=== PATIENT | male | born 1965 | race Caucasian/White ===

== ENCOUNTER 2018-09-18 09:30 | Inpatient (IN) | payer SELFPAY ==
[2018-09-18] MEDS ORDERED: LORazepam 2 MG/ML INJ IVP ONE (09:35)
--- NOTE | 2018-09-18 09:35 | EDPHY ---
H & P Time Seen by Provider: 09/18/18 09:31 Constitutional: Initial Vital Signs Temperature (C) 36.5 C 09/18/18 09:34 Heart Rate 116 H 09/18/18 09:34 Respiratory Rate 20 09/18/18 09:34 Blood Pressure 140/113 H 18 09:34 O2 Sat (%) 94 09/18/18 09:34 O2 Delivery Mode Room Air Allergies/Adverse Reactions: shrimp Allergy (Verified 09/18/18 09:34) Home Medications: Medication Instructions Recorded Ibuprofen [Motrin (*)] 200 mg PO DAILY PRN 09/18/18 Medical Decision Making ED Course/Re-evaluation: CHIEF COMPLAINT: Seizure HISTORY OF PRESENT ILLNESS: The patient is a 61 y/o male with a history of prior alcohol-withdrawal seizures arriving via EMS from the [facility] with altered mentation after a witnessed seizure. Per bystanders to EMS, he did not fall and was assisted to the ground. Bystanders denied apneic periods or head trauma. In addition to being postictal, EMS noted a tongue bite and urinary incontinence. Prehospital BGL was 159. The patient is able to answer some questions, but at times is nonsensical telling me how his sister was feeding alcohol to rabbits. He says his last alcohol intake was last night and it sounds like his sister may be trying to help him taper off it, though this is unclear due to altered mentation. REVIEW OF SYSTEMS: A comprehensive 10 system review of systems is otherwise negative aside from elements mentioned in the history of present illness and medical decision making. PHYSICAL EXAM: HR, BP, O2 Sat, RR. Temp noted General Appearance: Alert, well hydrated, appropriate, and non-toxic appearing. Head: Atraumatic without scalp tenderness or obvious injury Eyes: Pupils equal, round, reactive to light and accommodation, EOMI, no trauma , no injection. Ears: Clear bilaterally, no perforation, normal landmarks Nose: Atraumatic, no rhinorrhea, clear. Throat: Mucus membranes moist. Tongue abrasion. Neck: Supple, non-tender, no lymphadenopathy. Respiratory: No retractions, no distress, no wheezes, and no accessory muscle use. Lungs are clear to auscultation bilaterally. Cardiovascular: Tachycardic regular rate and rhythm, no murmurs, rubs, or gallops. Good capillary refill all extremities. Gastrointestinal: Abdomen is soft, non-tender, non-distended, no masses, no rebound, no guarding, no peritoneal signs. Musculoskeletal: Normal active ROM of all extremities, atraumatic. Neurological: Alert, can answer some questions, but tangential and nonsensical at times, and interactive. The patient has non-focal cranial nerves, motor, sensory, and cerebellar exam. Diffusely tremulous. Skin: No rashes, good turgor, no nodules on palpation. PAST MEDICAL HISTORY: Alcoholism with prior withdrawal seizures PAST SURGICAL HISTORY: Noncontributory SOCIAL HISTORY: Lives in [place]. . Prior medical records reviewed including admission for withdrawal seizure . DIAGNOSTICS/PROCEDURES/CRITICAL CARE TIME: Critical care time spent by me, Dr. Johnson, exclusively with this patient was 35 minutes, exclusive of PA time and exclusive of procedures. The organ system at risk was neurologic. Time spent in serial assessments of the patient, consideration of interventions, and review of labs. DIFFERENTIAL DIAGNOSIS: The differential diagnosis for the patient's seizure included but was not limited to electrolyte abnormality, alcohol withdrawal, medication noncompliance, head injury, SENIOR MECHANICAL PROJECT ENGINEER structural abnormality, and break through seizure. MEDICAL DECISION MAKING: This is a 53 y/o male with a history of alcoholism and prior alcohol withdrawal seizures who presents tremulous after a witnessed seizure this morning. He also has nonsensical speech at times indicating his is likely in DTs. 2mg IV Ativan and labs ordered. Plan for admission. Spoke with hospitalist service. Dr. Lam accepts admission. No bed currently available for patient to be admitted to and patient is currently boarding in the ED. - Data Points Laboratory Results: Laboratory Results 09/18/18 09:30 09/18/18 09:30 09/18/18 09/18/18 09/18/18 09:30 09:30 09:30 WBC 9.71 10^3/uL H 10^3/uL (3.80-9.50) RBC 3.85 10^6/uL L 10^6/uL (4.40-6.38) Hgb 13.9 g/dL g/dL (13.7-17.5) Hct 39.9 % L % (40.0-51.0) MCV 103.6 fL H fL (81.5-99.8) MCH 36.1 pg H pg (27.9-34.1) MCHC 34.8 g/dL g/dL (32.4-36.7) RDW 12.5 % % (11.5-15.2) Plt Count 118 10^3/uL L 10^3/uL (150-400) MPV 9.3 fL fL (8.7-11.7) Neut % (Auto) 78.4 % H % (39.3-74.2) Lymph % (Auto) 10.4 % L % (15.0-45.0) [place] % (Auto) 10.4 % % (4.5-13.0) Eos % (Auto) 0.0 % L % (0.6-7.6) Baso % (Auto) 0.4 % % (0.3-1.7) Nucleat RBC Rel Count 0.0 % % (0.0-0.2) Absolute Neuts (auto) 7.61 10^3/uL H 10^3/uL (1.70-6.50) Absolute Lymphs (auto) 1.01 10^3/uL 10^3/uL (1.00-3.00) Absolute Monos (auto) 1.01 10^3/uL H 10^3/uL (0.30-0.80) Absolute Eos (auto) 0.00 10^3/uL L 10^3/uL (0.03-0.40) Absolute Basos (auto) 0.04 10^3/uL 10^3/uL (0.02-0.10) Absolute Nucleated RBC 0.00 10^3/uL 10^3/uL (0-0.01) Immature Gran % 0.4 % % (0.0-1.1) Immature Gran # 0.04 10^3/uL 10^3/uL (0.00-0.10) PT 12.4 SEC SEC (12.0-15.0) INR 0.90 (0.83-1.16) APTT 23.1 SEC SEC (23.0-38.0) Sodium 138 mEq/L mEq/L (135-145) Potassium 3.8 mEq/L mEq/L (3.5-5.2) Chloride 102 mEq/L mEq/L (97-110) Carbon Dioxide 22 mEq/l mEq/l (22-31) Anion Gap 14 mEq/L mEq/L (6-14) BUN 8 mg/dL mg/dL (7-23) Creatinine 0.7 mg/dL mg/dL (0.7-1.3) Estimated GFR > 60 Glucose 151 mg/dL H mg/dL (70-100) Calcium 8.9 mg/dL mg/dL (8.5-10.4) Total Bilirubin 1.0 mg/dL mg/dL (0.1-1.4) Conjugated Bilirubin 0.4 mg/dL mg/dL (0.0-0.5) Unconjugated Bilirubin 0.6 mg/dL mg/dL (0.0-1.1) AST 149 IU/L H IU/L (17-59) ALT 89 IU/L H IU/L (21-72) Alkaline Phosphatase 120 IU/L IU/L (38-126) Total Protein 7.2 g/dL g/dL (6.3-8.2) Albumin 4.6 g/dL g/dL (3.5-5.0) Lipase 285 IU/L IU/L (23-300) Medications Given: Discontinued Medications Phenobarbital Sodium 260 mg/ (Sodium Chloride) 52 mls @ 208 mls/hr IV ONCE ONE Stop: 09/18/18 11:29 Last Admin: 09/18/18 11:26 Dose: 52 mls Phenobarbital Sodium 130 mg/ (Sodium Chloride) 51 mls @ 204 mls/hr IV ONCE ONE Stop: 09/18/18 12:44 Last Admin: 09/18/18 12:50 Dose: 51 mls Lorazepam (Ativan Injection) 2 mg IVP EDNOW ONE Stop: 09/18/18 09:36 Last Admin: 09/18/18 09:41 Dose: 2 mg Departure - Departure Disposition: [facility] Acute Clinical Impression: Delirium tremens Alcohol withdrawal seizure Qualifiers: Complication of substance-induced condition: with delirium Qualified Code(s): F10.231 - Alcohol dependence with withdrawal delirium Condition: Fair Report Scribed for: Андрей Johnson Report Scribed by: Alexsandra Antonio Date of Report: 09/18/18 Time of Report: 09:47
[2018-09-18 09:52] LABS: PLATELET COUNT 118 10^3/uL (150-400)
[2018-09-18 10:02] LABS: INR 0.9 (0.83-1.16); PROTIME(PATIENT) 12.4 SEC (12.0-15.0)
[2018-09-18] MEDS ORDERED: ACETAMINOPHEN 325 MG TAB PO PRN (10:51)
[2018-09-18] MEDS ORDERED: LORazepam 2 MG/ML INJ IVP PRN (10:51)
[2018-09-18] MEDS ORDERED: FLUMAZENIL 0.5 MG/5 ML MDV IVP PRN (10:51)
[2018-09-18] MEDS ORDERED: ONDANSETRON 4 MG/2 ML VIAL IVP PRN (10:51)
[2018-09-18] MEDS ORDERED: ONDANSETRON DISINTEGRATING 4 MG TAB PO PRN (10:51)
[2018-09-18] MEDS ORDERED: LORazepam 1 MG TAB PO PRN (10:51)
--- NOTE | 2018-09-18 11:06 | PDGENHP ---
History and Physical - Chief Complaint seizure - History of Present Illness 53 yo male with h/o alcohol abuse and previous seizure presents to ED via EMS after suffering a seizure at the [facility]. Apparently, his sister was trying to wean him off alcohol so he could present to his court date sober. Upon arrival to the [facility], he suffered a seizure. He bit his tongue and has obvious trauma to his tongue, but denies pain. He is unable to provide an accurate history and hx is obtained from the ED physician and staff. He does note a h/o previous seizures. Seems like he may be under-reporting his etoh history. He is confused. Says he wants to go home. In the ED, he was treated with 2 mg IV Ativan. He is tachycardic and tremulous. He is admitted for further management. History Information - Allergies/Home Medication List Allergies/Adverse Reactions: shrimp Allergy (Verified 09/18/18 09:34) Home Medications: Ibuprofen [Motrin (*)] 200 mg PO DAILY PRN 09/18/18 [Last Taken Unknown] I have personally reviewed and updated: family history, medical history, social history, surgical history - Past Medical History Additional medical history: alcohol abuse. 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 Review of Systems Review of Systems: ROS: 10pt was reviewed & negative except for what was stated in HPI & below Physical Exam Physical Exam: Temp Pulse Resp BP Pulse Ox 36.5 C 116 H 20 140/113 H 94 09/18/18 09:34 09/18/18 09:34 09/18/18 09:34 09/18/18 09:34 09/18/18 09:34 Constitutional: no apparent distress Eyes: PERRL Ears, Nose, Mouth, Throat: moist mucous membranes, other (+left sided tongue laceration) Cardiovascular: tachycardia Respiratory: no respiratory distress Gastrointestinal: normoactive bowel sounds Skin: warm Musculoskeletal: full muscle strength Psychiatric: encephalopathic Lab Data & Imaging Review 09/18/18 09:30 09/18/18 09:30 WBC 9.71 10^3/uL (3.80-9.50) H 09/18/18 09:30 RBC 3.85 10^6/uL (4.40-6.38) L 09/18/18 09:30 Hgb 13.9 g/dL (13.7-17.5) 09/18/18 09:30 Hct 39.9 % (40.0-51.0) L 09/18/18 09:30 MCV 103.6 fL (81.5-99.8) H 09/18/18 09:30 MCH 36.1 pg (27.9-34.1) H 09/18/18 09:30 MCHC 34.8 g/dL (32.4-36.7) 09/18/18 09:30 RDW 12.5 % (11.5-15.2) 09/18/18 09:30 Plt Count 118 10^3/uL (150-400) L 09/18/18 09:30 MPV 9.3 fL (8.7-11.7) 09/18/18 09:30 Neut % (Auto) 78.4 % (39.3-74.2) H 09/18/18 09:30 Lymph % (Auto) 10.4 % (15.0-45.0) L 09/18/18 09:30 [place] % (Auto) 10.4 % (4.5-13.0) 09/18/18 09:30 Eos % (Auto) 0.0 % (0.6-7.6) L 09/18/18 09:30 Baso % (Auto) 0.4 % (0.3-1.7) 09/18/18 09:30 Nucleat RBC Rel Count 0.0 % (0.0-0.2) 09/18/18 09:30 Absolute Neuts (auto) 7.61 10^3/uL (1.70-6.50) H 09/18/18 09:30 Absolute Lymphs (auto) 1.01 10^3/uL (1.00-3.00) 09/18/18 09:30 Absolute Monos (auto) 1.01 10^3/uL (0.30-0.80) H 09/18/18 09:30 Absolute Eos (auto) 0.00 10^3/uL (0.03-0.40) L 09/18/18 09:30 Absolute Basos (auto) 0.04 10^3/uL (0.02-0.10) 09/18/18 09:30 Absolute Nucleated RBC 0.00 10^3/uL (0-0.01) 09/18/18 09:30 Immature Gran % 0.4 % (0.0-1.1) 09/18/18 09:30 Immature Gran # 0.04 10^3/uL (0.00-0.10) 09/18/18 09:30 PT 12.4 SEC (12.0-15.0) 09/18/18 09:30 INR 0.90 (0.83-1.16) 09/18/18 09:30 APTT 23.1 SEC (23.0-38.0) 09/18/18 09:30 Sodium 138 mEq/L (135-145) 09/18/18 09:30 Potassium 3.8 mEq/L (3.5-5.2) 09/18/18 09:30 Chloride 102 mEq/L (97-110) 09/18/18 09:30 Carbon Dioxide 22 mEq/l (22-31) 09/18/18 09:30 Anion Gap 14 mEq/L (6-14) 09/18/18 09:30 BUN 8 mg/dL (7-23) 09/18/18 09:30 Creatinine 0.7 mg/dL (0.7-1.3) 09/18/18 09:30 Estimated GFR > 60 09/18/18 09:30 Glucose 151 mg/dL (70-100) H 09/18/18 09:30 Calcium 8.9 mg/dL (8.5-10.4) 09/18/18 09:30 Total Bilirubin 1.0 mg/dL (0.1-1.4) 09/18/18 09:30 Conjugated Bilirubin 0.4 mg/dL (0.0-0.5) 09/18/18 09:30 Unconjugated Bilirubin 0.6 mg/dL (0.0-1.1) 09/18/18 09:30 AST 149 IU/L (17-59) H 09/18/18 09:30 ALT 89 IU/L (21-72) H 09/18/18 09:30 Alkaline Phosphatase 120 IU/L (38-126) 12/26/18 09:30 Total Protein 7.2 g/dL (6.3-8.2) 09/18/18 09:30 Albumin 4.6 g/dL (3.5-5.0) 09/18/18 09:30 Lipase 285 IU/L (23-300) 09/18/18 09:30 Assessment & Plan Assessment: Alcohol dependence in acute withdrawal - s/p 2 mg IV Ativan in ED. Discussed with resistor coater. -load with IV phenobarb, repeat in 30 minutes -ok to stack ativan [facility] protocol -vits, folic acid, thiamine Alcohol withdrawal seizure - phenobarb / bzds Alcoholic liver disease - likely mild alcoholic hepatitis -trend, defer imaging at this time Thrombocytopenia - likely BM suppression in setting of etoh abuse -follow Metabolic encephalopathy - 2/2 etoh w/d, management as above Full code DVT PPLX - SCDs for now Dispo - inpt, ICU. CM consult. PT/OT evals when stable. 40 min crit care.
[2018-09-18] MEDS ORDERED: NS IV ONE ×2 (11:15→12:30)
[2018-09-18] MEDS ORDERED: PHENOBARBITAL NA IV ONE ×2 (11:15→12:30)
[2018-09-18] MEDS ORDERED: PHENobarbital 30 MG TAB PO ONE (17:01)
--- NOTE | 2018-09-18 17:11 | PDCONSULT ---
Glass Cleaner Note: ASSESSMENT 53-year-old male with severe alcohol withdrawal, DTs and alcohol withdrawal seizure # severe alcohol withdrawal # delirium tremens # withdrawal seizure # tongue laceration, left side # macrocytosis, alcohol related PLAN # s/p phenobarb bolus with interval improvement symptoms, will give another dose of phenobarb now then use CIWA # seizures of only route occurred twice in the setting of alcohol withdrawal will defer seizure workup # multivitamin thiamine, folate acid for alcohol dependence and macrocytosis # trend CBC electrolytes # monitor for respiratory depression # Feeding - clear liquid diet # Analgesia none # Sedation none # Thromboprophylaxis - SQ hep # Head of bed elevated # Ulcer prophylaxis - not indicated # Glucose monitor # Skin no skin breakdown # Delirium - delirium precautions Patient is critical ill due to life threatening organ dysfunction and is at high risk for decompensation and . Total critical care time, excluding procedures: 58 min evaluating patient discussions with pharmacist nurses and hospitalist and administering medications Consult I was asked by Dr. Lam of [facility] to evaluate this patient for severe alcohol withdrawal in ICU care [facility] Julio is a 53-year-old male with alcohol dependence who is brought in by EMS after a witnessed seizure and altered mental status. He was brought in to the emergency department altered tremulous and with a bleeding tongue laceration. He received aggressive treatment with IV phenobarbital with subsequent improvement in mental status but still clinically with alcohol withdrawal. Prior to this admission he states his last drink was yesterday. He denies fevers chills nausea vomiting shortness of breath syncope, however cold intolerance, dysuria. He drinks 2-4 beers per day plus vodka. He is unable to quantify the size of the beer or oz of vodka. He has been through rehabilitation 1 time prior and subsequently relapse. 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 Allergies Shrimp Home medications None Past medical history Alcohol dependence, alcohol withdrawal seizure, tremors, anxiety Social history Lives in [place] with , nonsmoker, daily alcohol as per HPI Family history- No family history of withdrawal seizures Review of systems A comprehensive 10 point review of systems was obtained is negative except as per HPI Vitals Afebrile, pulse 110, blood pressure 130/78, respirations 18, 96 % room air GEN: Tremulous restless in bed NEURO: Initially confused and not oriented now A&Ox3, CN 2-12 GI HEENT: Tongue swollen left-sided tongue laceration with macerated skin NECK: supple, trachea midline CHEST normal shape, no pes excavatum CVS: rrr no m/r/g PULM: CTA B, no wheezes/rales/rhonchi ABD: soft, NT, ND, NABS EXT: From the less no lesions, no swelling SKIN: warm, dry, intact, no rash PSYCH CAM negative, appropriate affect Laboratory data Reviewed significant for normal white count borderline anemia, macrocytosis with an MCV of 103.6, platelets 118 Imaging None
--- NOTE | 2018-09-18 17:19 | PDMN ---
Medical Necessity Medical necessity: [facility] [place] [id number] substance related disorders: SZ in pt with PMHx of W/D Sz. with metabolic encephalopathy, liver disease, tachycardia, HTN, acute w/d with need for further monitoring, eval and tx. [facility] protocol.
[2018-09-18] MEDS: THIAMINE HCL 500 MG in NS 100 ML IV SCH (17:48)
[2018-09-18] MEDS ORDERED: PROTOCOL MAGNESIUM 1 DOSE IV PRN (22:39)
[2018-09-18] MEDS ORDERED: MAGNESIUM SULF 2 GM/WATER 50 ML IV ONE ×2 (22:56→23:00)
[2018-09-19] MEDS ORDERED: POTASSIUM CL 20 MEQ TAB PO ONE (06:22)
[2018-09-19] MEDS ORDERED: NS W/ 20 KCl/L 1,000 ML IV SCH (06:30)
[2018-09-19] MEDS ORDERED: PROTOCOL POTASSIUM 1 DOSE MISC PRN (06:33)
[2018-09-19 07:37] VITALS: BP 146/98
[2018-09-19] MEDS: THIAMINE HCL 500 MG in NS 100 ML IV SCH (08:07)
[2018-09-19] MEDS ORDERED: FOLIC ACID 1 MG TAB PO SCH (09:00)
[2018-09-19] MEDS ORDERED: MULTIVITAMINS 1 EACH TAB PO SCH (09:00)
[2018-09-19] MEDS ORDERED: POTASSIUM CL 10 MEQ TAB PO ONE (09:02)
--- NOTE | 2018-09-19 09:03 | PDINTPN ---
Regional Geodetic Advisor Progress Note Assessment/Plan: ASSESSMENT 53-year-old male with severe alcohol withdrawal, DTs and alcohol withdrawal seizure # severe alcohol withdrawal # delirium tremens, resolved # withdrawal seizure # tongue laceration, left side # macrocytosis, alcohol related PLAN # s/p phenobarb boluses with resolution in ETOH w/d and DT. # seizures only occurred twice in the setting of alcohol withdrawal will defer seizure workup # multivitamin thiamine, folate acid for alcohol dependence and macrocytosis # okay to discharge from pulmonary perspective Subjective: Marked interval improvement after phenobarbital loading. Minimal ativan use. Feeling better today, mild to no tremors, improvements in cognition. No new fevers, chills, nausea, vomiting, seizures, headaches Objective: Vital Signs Temp Pulse Resp BP Pulse Ox 37.0 C 104 H 18 146/98 H 93 09/19/18 07:35 09/19/18 07:35 09/19/18 07:35 09/19/18 07:35 09/19/18 07:35 Laboratory Results 09/19/18 05:00 09/18/18 09/19/18 09/20/18 05:59 05:59 05:59 Intake Total 1440 Output Total 700 100 Balance 740 -100 PT 12.4 SEC (12.0-15.0) 09/18/18 09:30 INR 0.90 (0.83-1.16) 09/18/18 09:30 Physical Exam - Physical Exam General Appearance: alert, no apparent distress EENT: PERRL/EOMI, No scleral icterus (L), No pale conjunctiva (R) Neck: non-tender, full range of motion, supple Respiratory: chest non-tender, lungs clear, normal breath sounds Cardiac/Chest: normal peripheral pulses, regular rate, rhythm, No edema Abdomen: non-tender, soft Skin: normal color, warm/dry Neuro/Psych: no motor/sensory deficits, alert, normal mood/affect, oriented x 3 (No tremors) ICD10 Worksheet Patient Problems: Problems Problem Status Onset Alcohol withdrawal seizure Acute Delirium tremens Acute
--- NOTE | 2018-09-19 15:05 | ASMTCMCOM ---
CM Note CM Note Notes: 53yo male admitted for Sz, ETOH abuse and confusion. Patient given ETOH Tx Resources, AA Mtg list. Patient interested in returning home. Left AMA. Date Signed: 09/19/2018 03:04 PM Electronically Signed By:Shanthi Allen LCSW
--- NOTE | 2018-09-19 15:07 | ASMTLACE ---
LACE Length of stay for Answers: Less than 1 day current admission Acuity / Level of Answers: Yes Care: Did the patient have an inpatient admission? Comorbidities - select Answers: Mild liver or renal all that apply disease # of Emergency department Answers: 1-2 visits in the last 6 months Social determinants Answers: History of substance abuse (ETOH, street drugs, prescription drugs, etc.) Score: 9 Date Signed: 09/19/2018 03:06 PM Electronically Signed By:Shanthi Allen LCSW
--- NOTE | 2018-09-19 15:10 | ASMTDCNOTE ---
Case Management Discharge Discharge Order Complete? 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 Reports that he has 2 girlfriends. He has been to [employer] in the past and went to [facility] AA Mt[facility] in 90 days, but then started drinking again. His son lives with him dairy department manager. Patient given ETOH Res. He left AMA. Date Signed: 09/19/2018 03:10 PM Electronically Signed By:Shanthi Allen LCSW
--- NOTE | 2018-09-19 15:11 | ASDISCHSUM ---
Discharge Information Plan Status: Medically Cleared to Leave:09/18/2018 Discharge Date:09/19/2018 11:37 AM CM D/C Disposition:Against Medical Advice ADT D/C Disposition:Against Medical Advice Projected Discharge Date:09/19/2018 11:00 AM Transportation at D/C:Friend Discharge Delay Reason: Follow-Up Date:09/19/2018 11:00 AM Discharge Slot:1 - 8:01 am - 12:00 noon Final Diagnosis:Sz ETOH abuse Placement Information Patient Contact Information Contact Name:CHALINO Relationship:Daughter Address:[address] Work Phone: [facility] Phone: [facility]/Zip Code:[place] [address] Email: Financial Information Financial Class:Self-Pay Primary Plan Desc:SELF PAY Primary Plan Number: Secondary Plan Desc: Secondary Plan Number: Assessment Information [facility] CM Progress Note CM Note CM Note Notes: 53yo male admitted for Sz, ETOH abuse and confusion. Patient given ETOH Tx Resources, AA Mtg list. Patient interested in returning home. Left AMA. Date Signed: 09/19/2018 03:04 PM Electronically Signed By:Shanthi Allen LCSW LACE LACE Length of stay for Answers: Less than 1 day current admission Acuity / Level of Answers: Yes Care: Did the patient have an inpatient admission? Comorbidities - select Answers: Mild liver or renal all that apply disease # of Emergency department Answers: 1-2 visits in the last 6 months Social determinants Answers: History of substance abuse (ETOH, street drugs, prescription drugs, etc.) Score: 9 Date Signed: 09/19/2018 03:06 PM Electronically Signed By:Shanthi Allen LCSW Case Management Discharge Plan Note Case Management Discharge Discharge Order Complete? 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 Reports that he has 2 girlfriends. He has been to [employer] in the past and went [facility] in [facility] days, but then started drinking again. His son lives with him chief librarian circulation department. Patient given ETOH Res. He left AMA. Date Signed: 09/19/2018 03:10 PM Electronically Signed By:Shanthi Allen LCSW Intervention Information
[2018-09-21] MEDS ORDERED: THIAMINE HCL 100 MG TAB PO SCH (10:51)
== END 2018-09-19 11:37 | disposition left against medical advice (07) | DRG 894 ==
LOC: EDUNIT# → OBSVTOIN 09:55 → F2N 16:47
PROVIDERS: ADMIT Hospitalist; ATTEND Hospitalist
DX: F10.231 Alcohol dependence with withdrawal delirium (principal); G93.41 Metabolic encephalopathy; K70.10 Alcoholic hepatitis without ascites; D69.6 Thrombocytopenia, unspecified; S01.512A Laceration without foreign body of oral cavity, initial encounter; D75.89 Other specified diseases of blood and blood-forming organs
CPT/HCPCS: 96374; 97161-GP; J2060; J2560; J3411; J3475

== ENCOUNTER 2019-02-13 11:51 | Emergency (ER) | payer SELFPAY ==
--- NOTE | 2019-02-13 12:30 | EDPHY ---
H & P Stated Complaint: cardiac arrest, cpr in progress, intubated Time Seen by Provider: 02/13/19 11:51 HPI/ROS: CHIEF COMPLAINT: Cardiac arrest HISTORY OF PRESENT ILLNESS: Patient is a 53-year-old male who arrived via ambulance after apparently suffering a cardiac arrest at home. CPR was in progress at the time of his arrival. Medical history is unknown. Patient was last seen alive at 9 a.m. This morning. Fire arrived on scene around 11 a.m. And started CPR. Paramedics arrived at 11:05 a.m. And continued the resuscitation efforts. To lower extremity interosseous lines were started. During the course of the resuscitation CPR was continuous with the exception of brief rhythm checks. The patient received 2 rounds of amiodarone, 300 mg followed by 150 mg, for rounds of epinephrine 1 mg each, and 6 shocks for ventricular fibrillation. Patient arrived in the emergency department at 11:51 a.m.. REVIEW OF SYSTEMS: Unable to obtain due to critical nature of patient's presentation Past medical history: Unknown Past surgical history: Unknown Family history: Unknown Social history: Unknown General Appearance: Intubated. CPR in progress. Unresponsive. ENT, Mouth: There is some blood noted in the ET tube.. Neck: Plethoric. No signs of trauma. Respiratory: No spontaneous respirations. Cardiovascular: No spontaneous cardiac activity seen on monitor. Gastrointestinal: Abdomen without signs of trauma. Skin: Cool with distal cyanosis. Extremities: Bilateral lower extremity inner osseous lines. No lower extremity edema. Neurological: Unresponsive. Pupils 5 mm, fixed and dilated. Medical Decision Making ED Course/Re-evaluation: Cardiac arrest with CPR in progress when patient arrived. CPR was continued. In addition to the emergency department staff the quality control lab tech staff and instrumental music teacher were present during the resuscitation. Patient received a 5th dose of epinephrine in the emergency department and an amp of bicarbonate. 16 gauge IV was started. Respirations per bag mask. Patient was not difficult to bag. CPR was noted to be effective with palpable pulses during CPR. However, there was no organized cardiac activity noted during rhythm checks, nor was there a shockable rhythm. Patient remained pulseless, unresponsive, and his pupils were fixed and dilated. Resuscitation efforts were continued for an additional 10 min. Total time of resuscitation was close to an hour, including the fire department and adapted physical education specialist efforts. Patient was pronounced at 12:01 p.m. On 02/13/2019. The patient's sister arrived in the emergency department. I notified her of her brother's , with social work case manager present. She was here to visit her brother. She tells me that he has a history of alcohol dependence/abuse. Other family members were notified. Critical Care Time: I spent a total of 30 minutes of critical care time in obtaining history, performing a physical exam, bedside monitoring of interventions, collecting and interpreting tests and discussion with consultants but not including time spent performing procedures. Patient arrived in cardiac arrest and critical care time includes resuscitative efforts in time spent with family notification. - Data Points Point of Care Test Results: Chemistry 02/13/19 12:00 POC Troponin I 0.42 ng/mL H ng/mL (0.00-0.08) Departure - Departure Disposition: Clinical Impression: Cardiac arrest Referrals: Patient,NotPresent [Primary Care Provider] - As per Instructions
--- NOTE | 2019-02-13 16:36 | ASMTCMCOM ---
CM Note CM Note Notes: The pt was brought in by EMS in full cardiac arrest with CPR in progress. His sister Argenis was in the hallway but she was unaware that he passed. This CM accompanied her to the family room and informed her of his passing. Dr. Shell relayed all pertinent medical information. Argenis notified the pts two adult children and provided relevant information to the hand sander. The pts adult children notified the pts minor child. Pt.s ex- is a [employer] employee who was on duty in the surgical [place]ásquez. She was notified and joined Argenis in the family room. The coroners office and investigators questioned the family prior to advising against seeing the pt. in that condition. The pts daughters began fighting and the wrapping machine operator had to step in to separate them. The family viewed the body separately to avoid conflict, they were accompanied by Argenis Jara. A number of neighbors and friends came to the emergency room and they were informed that the pt. . One of the neighbors was adamant that she see the body. She was questioned by police and informed of the coroners decision. This and Argenis Jara offered support throughout the process and worked to provide resources and assistance to the family and friends. Date Signed: 02/13/2019 04:35 PM Electronically Signed By:Sherry Butcher LCSW
[2019-02-13] MEDS ORDERED: NA BICARBONATE 50 MEQ/50 ML VIAL ONE (19:03)
[2019-02-13] MEDS ORDERED: EPINEPHrine 1 MG/10 ML SYR IVP ONE ×2 (19:03)
== END 2019-02-13 14:44 | disposition expired ==
LOC: MERGE 11:51 → EDBD 11:51
PROC: 3E0A3GC Introduction of Other Therapeutic Substance into Bone Marrow, Percutaneous Approach (ICD-10-PCS; principal; 2019-02-13)
DX: I46.9 Cardiac arrest, cause unspecified (principal)
CPT/HCPCS: 84484-ER; 96374